=== PATIENT | male | born 1995 | race Caucasian/White ===

== ENCOUNTER → 2017-04-19 | Outpatient (CLI) | payer OTHER ==
[2017-04-19 13:26] LABS: POTASSIUM SERUM 4.1 MEQ/L (3.5-5.1)
== END ==
LOC: M LAB 12:15
DX: E87.5 Hyperkalemia (principal)
CPT/HCPCS: 84132

== ENCOUNTER 2017-07-25 13:20 | Outpatient (RCR) | payer OTHER | END 2017-07-26 | LOC: M PT 13:20 | DX: Z51.89 Encounter for other specified aftercare (principal); M94.262 Chondromalacia, left knee; M94.261 Chondromalacia, right knee | CPT/HCPCS: 97162 ==

== ENCOUNTER 2017-08-07 13:45 | Outpatient (RCR) | payer OTHER | END 2017-08-25 | LOC: M PT 13:45 | DX: Z51.89 Encounter for other specified aftercare (principal); M22.41 Chondromalacia patellae, right knee; M22.42 Chondromalacia patellae, left knee | CPT/HCPCS: 97110 ==

== ENCOUNTER → 2018-02-17 | Outpatient (CLI) | payer BC, OTHER, SELFPAY ==
--- NOTE | 2018-02-17 15:14 | REP ---
Clinical: Pain and swelling with recent trauma. Technique: AP, lateral, bilateral oblique views of the right first toe. Findings: Swelling overlies the distal portion of the first toe. No obvious acute fracture or dislocation identified. No subcutaneous emphysema or radiodense foreign body. Impression: Soft-tissue swelling. No obvious acute fracture or dislocation. Electronically Signed by Lester Macdonald MD 02/17/2018 03:06 P
== END ==
LOC: M LRY 14:41
PROVIDERS: ATTEND Physician Assistant
DX: S99.921A Unspecified injury of right foot, initial encounter (principal); Y92.9 Unspecified place or not applicable; W22.8XXA Striking against or struck by other objects, initial encounter

== ENCOUNTER → 2018-03-30 | Outpatient (CLI) | payer BC, MEDICAID | LOC: M LAB 09:42 | PROVIDERS: ATTEND Nurse Practitioner Family | DX: E87.5 Hyperkalemia (principal) ==